=== PATIENT | female | born 1970 | race Caucasian/White ===

== ENCOUNTER → 2024-05-14 12:11 | Outpatient (REF) | payer OTHER, SELFPAY | LOC: WDC 12:11 | PROVIDERS: ATTENDING PHYSICIAN Nurse Practitioner Family | DX: Z12.31 Encounter for screening mammogram for malignant neoplasm of breast (principal) | CPT/HCPCS: 77063; 77067 ==

== ENCOUNTER → 2024-05-22 09:52 | Outpatient (REF) | payer OTHER, SELFPAY | LOC: WDC 09:52 | PROVIDERS: ATTENDING PHYSICIAN Nurse Practitioner Family | DX: R92.8 Other abnormal and inconclusive findings on diagnostic imaging of breast (principal) | CPT/HCPCS: 77065 ==

== ENCOUNTER → 2025-05-21 11:27 | Outpatient (REF) | payer OTHER, SELFPAY | LOC: WDC 11:27 | PROVIDERS: ATTENDING PHYSICIAN Nurse Practitioner Family | DX: Z12.31 Encounter for screening mammogram for malignant neoplasm of breast (principal) | CPT/HCPCS: 77063; 77067 ==